=== PATIENT | female | born 1995 | race African-American/Black ===

== ENCOUNTER 2019-06-25 20:35 | Emergency (ER) | payer OTHER ==
[~2019-06-25] VITALS: Ht 167.6 cm; Wt 95.4 kg
[2019-06-25 23:45] VITALS: BP 128/77
== END 2019-06-25 23:46 | disposition home or self-care (01) | DRG 563 ==
LOC: ED 20:35
DX: S39.012A Strain of muscle, fascia and tendon of lower back, initial encounter (principal); F17.210 Nicotine dependence, cigarettes, uncomplicated; V44.6XXA Car passenger injured in collision with heavy transport vehicle or bus in traffic accident, initial encounter